=== PATIENT | female | born 1960 | race Caucasian/White ===

== ENCOUNTER → 2019-09-06 10:33 | Outpatient (CLI) | payer OTHER, MEDICAID, SELFPAY ==
[2015-11-28 11:49] VITALS: BMI 33.0
--- NOTE | 2019-09-06 10:33 | RAD_ITS ---
STUDY: X-RAY - PELVIS AND RIGHT HIP REASON FOR EXAM: Female, 58 years old. TOTAL HIP IN 2016. RECENT FALL IN BATHTUB WITH PAIN TECHNIQUE: 3 views of the pelvis and hip. COMPARISON: 01-10-16 FINDINGS: There is a non-specific bowel gas pattern. Normal visualized soft tissue structures. Right total hip arthroplasty in anatomic alignment. Normal bilateral iliac wings, sacroiliac joints and visualized sacrum. Normal bilateral superior and inferior pubic rami. Normal pubic symphysis. Normal bilateral ischial tuberosities. Normal visualized femoral head. Normal acetabulum. Normal hip joint. RAD/HIP, UNI W/ Pelvis 2-3 Views IMPRESSION: Total arthroplasty on the right. No fracture identified. Electronically Signed: Leno Costa MD at 21:22 EDT , Service support ,
== END ==
PROVIDERS: Referring Provider Orthopaedic Surgery; Visit Provider Orthopaedic Surgery
DX: M25.551 Pain in right hip (principal); Z96.641 Presence of right artificial hip joint
CPT/HCPCS: 73502

== ENCOUNTER → 2019-11-02 13:02 | Outpatient (CLI) | payer MEDICARE, MEDICAID, SELFPAY ==
[2019-09-06 10:45] VITALS: BMI 33.0
[2019-11-02 13:48] LABS: Amphetamine Urine VISTA NEGATIVE (<1000 ng/mL); Barbiturate Urine VISTA NEGATIVE (< 200 ng/mL); Benzodiazepine Urine VISTA NEGATIVE (< 200 ng/mL); Cocaine Urine VISTA NEGATIVE (< 300 ng/mL); Ecstacy Urine VISTA NEGATIVE (< 500 ng/mL); Methadone Urine VISTA NEGATIVE (< 300 ng/mL); PCP Urine VISTA NEGATIVE (< 25 ng/mL); THC Urine VISTA NEGATIVE (< 50 ng/mL); Vista UDS pH Range 5
== END ==
PROVIDERS: Referring Provider Anesthesiology Pain Medicine; Visit Provider Anesthesiology Pain Medicine
DX: F11.20 Opioid dependence, uncomplicated (principal)
CPT/HCPCS: 80307

== ENCOUNTER 2020-01-03 12:30 | Outpatient (RCR) | payer MEDICARE, MEDICAID, SELFPAY ==
[2019-09-06 10:45] VITALS: BMI 33.0
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
--- NOTE | 2019-11-24 11:05 | HP.PTREVAL_ITS ---
Dr. Antonietta Ortega MD, It has been my pleasure to treat EDY DIEHL over the last 10 visits for BACK AND LEG PAIN. Please see the progress note below for an update on the physical therapy plan of care! Subjective: PATIENT REPORTS HER BACK PAIN HAS IMPROVED AND SHE CAN BARELY TELL SHE HAD A RIGHT HIP REPLACEMENT NOW. NO CHANGE IN LEFT ANKLE. I STILL CAN'T SIT OR STAND FOR A LONG PERIOD OF TIME THOUGH. PATIENT REPORTS SHE IS LEARNING A LOT IN PT AND IT IS REALLY HELPING AND SHE WANTS TO CONTINUE. PATIENT REPORTS THAT THE NUNO SHE HAD FROM DR. ORTEGA DURING THIS EPISODE OF CARE WITH PT LASTED ABOUT 4 DAYS. Objective/Function: PATIENT WAS SEEN TODAY FOR RE-ASSESSMENT OF PROGRESS TOWARD THE SET PT GOALS AND THE NEED FOR FURTHER PHYSICAL THERAPY VS READINESS FOR DISCHARGE. PATIENT IS A GOOD CANDIDATE TO CONTINUE PT BASED ON PROGRESS MADE AND ROOM FOR FURTHER IMPROVEMENT AND SHE IS AGREEABEL. UPON EXAM TODAY: Motor deficit: RIGHT LE STRENGTH 5/5 WITH MMT'ING EXCEPT HIP GRADED 4-/5. LLE: HIP 4/5, KNEE 4/5 (KNEE FLEXION TESTING PAIN LIMITED BY ANKLE PAIN), LEFT ANKLE TESTING PAIN LIMITED. Sensory deficit: ALTERED LIGHT TOUCH SENSATION LEFT FOOT AND ANKLE COMPARED TO THE RIGHT. ROM deficit: TIGHT HERMINIA HIP FLEXORS, HS'S AND GASTROC SOLEUS COMPLEX'S. LEFT ANKLE ROM DEFICITS ALL PLANES BY APPROX 50% COM PARED TO RIGHT. Dural Signs: POSITIVE LLE. Lumbar mvmt loss: flex - MIN. ext - MIN - FEELS BETTER. R SG - MOD - MILD INCREASE IN LBP. L SG - MOD - NE. Core strength: POOR. Palpation: TENDERNESS WITH PALPATION OF THE LOWER LUMBAR SPINE. INCREASED MUSCLE TONE HERMINIA LUMBAR PARASPINALS. Plan Plan: Would recommend continued AT at this time, with caution towards increased WBing to L ankle pain. Progress towards I pool program. CONT. AQUATIC THERAPY FOR PAIN RELIEF, POSTURE CORRECTION/STRENGTHENING, INSTRUCTION IN APPROPRIATE BODY MECHANICS AND ACTIVITY MODIFICATIONS. DLS STARTING WITH A NEUTRAL SPINE PROGRESSING ROM TOLERATED. HERMINIA LE ROM, STRETCHING AND STRENGTHENING. HEP INSTRUCTION. Goals Goal 1:: DECREASE C/O BACK AND LE SX'S. Goal Time Frame: 4-6 Weeks Goal Progress: Progressing Goal 2:: IMPROVE PERSONAL CARE, LIFTING, WALKING, SITTING, STANDING, SLEEP, SOCIAL LIFE, TRAVEL AND HOMEMAKING FUNCTION. Goal Time Frame: 4-6 Weeks Goal Progress: Progressing Goal 3:: INSTRUCT IN PROPHYLAXIS Goal Time Frame: 4-6 Weeks Goal Progress: Progressing Anticipated Interventions Patient/Client Instruction: Educate patient on: Condition, Plan of Care, Risk Factors, Benefits of Fitness Program For the Purpose of:: To improve self management Therapeutic Exercise to Include: Strength training, Body mechanics, Postural training, Flexibilty training, Neuromotor development, In an aquatic setting, Dynamic Lumbar Stabilization For the Purpose of:: To decrease pain, To increase ROM, To improve muscle performance and motor function, To increase tolerance to activity/condition/position, To improve ability of physical actions for home/community/work/leisure Please do not hesitate to contact me at [phone] by phone or if you have questions or concerns regarding this new plan of care! Sincerely, Gwendolyn Rocha, PT, Cert MDT
--- NOTE | 2020-01-03 12:58 | HP.PTREVAL_ITS ---
Dr. Antonietta Ortega MD, It has been my pleasure to treat EDY DIEHL over the last 18 visits for BACK AND LEG PAIN. Please see the progress note below for an update on the physical therapy plan of care! Subjective: PATIENT REPORTS THIS THERAPY IS HELPING HER BACK AND LEG SO MUCH BUT LIMITED BY LEFT FOOT. PATIENT REPORTS SHE IS GOING TO BE NON-WT BEARING IN A CAST FOR 8 WKS AFTER TAR 01/20/21. Objective/Function: PATIENT WAS SEEN TODAY FOR RE-ASSESSMENT OF PROGRESS TOWARD THE SET PT GOALS AND THE NEED FOR FURTHER PHYSICAL THERAPY VS READINESS FOR DISCHARGE. PATIENT IS A GOOD CANDIDATE TO CONTINUE PT BASED ON PROGRESS MADE AND ROOM FOR FURTHER IMPROVEMENT AND SHE IS AGREEABEL. UPON EXAM TODAY: Motor deficit: RIGHT LE STRENGTH 5/5 WITH MMT'ING EXCEPT HIP GRADED 4/5. LLE: HIP 4/5, KNEE 4/5 (KNEE FLEXION TESTING PAIN LIMITED BY ANKLE PAIN), LEFT ANKLE TESTING PAIN LIMITED. Sensory deficit: ALTERED LIGHT TOUCH SENSATION LEFT FOOT AND ANKLE COMPARED TO THE RIGHT. ROM deficit: TIGHT HERMINIA HIP FLEXORS, HS'S AND GASTROC SOLEUS COMPLEX'S. LEFT ANKLE ROM DEFICITS ALL PLANES BY APPROX 50% COMPARED TO RIGHT. Dural Signs: NEGATIVE. Lumbar mvmt loss: flex - NIL. ext - MIN. R SG - MOD. L SG - MOD. Core strength: POOR. Palpation: STILL WITH TENDERNESS WITH PALPATION OF THE LOWER LUMBAR SPINE. Plan Plan: Continue advancing toward I pool program. AQUATIC THERAPY FOR PAIN RELIEF, POSTURE CORRECTION/STRENGTHENING, INSTRUCTION IN APPROPRIATE BODY MECHANICS AND ACTIVITY MODIFICATIONS. DLS STARTING WITH A NEUTRAL SPINE PROGRESSING ROM TOLERATED. HERMINIA LE ROM, STRETCHING AND STRENGTHENING. HEP INSTRUCTION. Goals Goal 1:: DECREASE C/O BACK AND LE SX'S. Goal Time Frame: 4-6 Weeks Goal Progress: Progressing Goal 2:: IMPROVE PERSONAL CARE, LIFTING, WALKING, SITTING, STANDING, SLEEP, SOCIAL LIFE, TRAVEL AND HOMEMAKING FUNCTION. Goal Time Frame: 4-6 Weeks Goal Progress: Progressing Goal 3:: INSTRUCT IN PROPHYLAXIS Goal Time Frame: 4-6 Weeks Goal Progress: Progressing Anticipated Interventions Patient/Client Instruction: Educate patient on: Condition, Plan of Care, Risk Factors, Benefits of Fitness Program For the Purpose of:: To improve self management Therapeutic Exercise to Include: Strength training, Body mechanics, Postural training, Flexibilty training, Neuromotor development, In an aquatic setting, Dynamic Lumbar Stabilization For the Purpose of:: To decrease pain, To increase ROM, To improve muscle performance and motor function, To increase tolerance to activity/condition/pos ition, To improve ability of physical actions for home/community/work/leisure Please do not hesitate to contact me at [phone] by phone or if you have questions or concerns regarding this new plan of care! Sincerely, Gwendolyn Rocha, PT, Cert MDT
--- NOTE | 2020-04-16 19:33 | HP.PT.NRP ---
EDY PIERCE SHANITA was seen in my office for initial evaluation on 10/14/19. The following Plan of Care was established for this patient: Initial Frequency: 2-3x /Week Initial Duration: 4-6 Weeks Patient/Client Instruction: Educate patient on: Condition, Plan of Care, Risk Factors, Benefits of Fitness Program For the Purpose of:: To improve self management Therapeutic Exercise to Include: Strength training, Body mechanics, Postural training, Flexibilty training, Neuromotor development, In an aquatic setting, Dynamic Lumbar Stabilization For the Purpose of:: To decrease pain, To increase ROM, To improve muscle performance and motor function, To increase tolerance to activity/condition/position, To improve ability of physical actions for home/community/work/leisure This patient was last seen in our office 01/03/20. Pertinent comments regarding their Physical therapy will appear below: This patient has not returned to Physical Therapy and is appropriate to return to MD for further follow-up as needed. At this point I will be discontinuing this patient from physical therapy. I would be happy to see this patient again in the future if found appropriate by the physician. Thank you! Gwendolyn Rocha, PT, Cert MDT
== END 2020-01-03 19:00 | disposition home or self-care (01) ==
LOC: PT 12:30
PROVIDERS: Referring Provider Anesthesiology Pain Medicine; Visit Provider Anesthesiology Pain Medicine
DX: M54.9 Dorsalgia, unspecified (principal); M79.606 Pain in leg, unspecified
CPT/HCPCS: 97112; 97113; 97162; 97164; 97530